=== PATIENT | female | born 1995 | race Caucasian/White ===

== ENCOUNTER 2018-04-21 08:05 | Emergency (ER) | payer OTHER ==
--- NOTE | 2018-04-21 09:26 | EDM.PDOC ---
ED HPI GENERAL MEDICAL PROBLEM - General Chief Complaint: SILO MAN Problem Stated Complaint: NEWLY PG-BLEEDING Time Seen by Provider: 04/21/18 08:22 Source of Information: Reports: Patient History Limitations: Reports: No Limitations - History of Present Illness INITIAL COMMENTS - FREE TEXT/NARRATIVE: The patient is G1 at 5 weeks gestation with a LNMP of March 18. She presents with cramping and vaginal bleeding. This all started early this morning at 0230. She had sever cramping and moderate bleeding. This has gotten better but she is still having bleeding. She did not pass any clots or tissue. She has no medical problems. She has no fever, chills, cough, chest pain, shortness of breath, or dysuria. Onset: Sudden Duration: Hour(s): (0230 this morning) Location: Reports: Abdomen, Pelvis Quality: Reports: Other (cramping) Severity: Moderate Improves with: Reports: None Worsens with: Reports: None Associated Symptoms: Reports: No Other Symptoms Lower Pelvic Pain Score (Numeric/FACES): 2 - Related Data Allergies Allergy/AdvReac Type Severity Reaction Status Date / Time No Known Allergies Allergy Verified 04/21/18 08:16 Home Meds: Home Meds Vits #93/Iron Fum/FA [ Formula Tablet] 1 tab PO DAILY 04/21/18 [History] Past Medical History Genitourinary History: Reports: UTI, Recurrent - Infectious Disease History Infectious Disease History: Reports: Chicken Pox Social & Family History - Tobacco Use Smoking Status *Q: Never Smoker Second Hand Smoke Exposure: No - Caffeine Use Caffeine Use: Reports: Coffee, Energy Drinks, Soda, Tea - Recreational Drug Use Recreational Drug Use: No ED ROS GENERAL - Review of Systems Review Of Systems: See Below Constitutional: Reports: No Symptoms HEENT: Reports: No Symptoms Respiratory: Reports: No Symptoms Cardiovascular: Reports: No Symptoms Endocrine: Reports: No Symptoms GI/Abdominal: Reports: No Symptoms : Reports: Other (Vaginal bleeding and cramping) Musculoskeletal: Reports: No Symptoms ED EXAM - Physical Exam Exam: See Below Exam Limited By: No Limitations General Appearance: Alert, No Apparent Distress Ears: Normal External Exam Nose: Normal Inspection Head: Atraumatic, Normocephalic Neck: Normal Inspection Respiratory/Chest: No Respiratory Distress, Lungs Clear, Normal Breath Sounds Cardiovascular: Regular Rate, Rhythm, No Edema, No Murmur GI/Abdominal Exam: Soft, Non-Tender, No Organomegaly, No Mass Course - Vital Signs Last Recorded V/S: Last Vital Signs Temp 98.7 F 04/21/18 08:10 Pulse 80 04/21/18 08:10 Resp 18 04/21/18 08:10 BP 135/74 04/21/18 08:10 Pulse Ox 97 04/21/18 08:10 - Orders/Labs/Meds Orders: Active Orders 24 hr Category Date Time Status Pelvic Exam, Set Up [RC] ASDIRECTED Care 04/21/18 08:40 Inactive OB Transvaginal [US] Stat Exams 04/21/18 08:39 Taken ABO/RH TYPE [BBK] Stat Lab 04/21/18 09:00 Results PATIENT RETYPE [BBK] Stat Lab 04/21/18 09:00 Results Labs: Laboratory Tests 04/21/18 04/21/18 04/21/18 Range/Units 09:00 09:00 09:00 WBC 10.34 H (3.98-10.04) K/mm3 RBC 5.75 H (3.98-5.22) M/mm3 Hgb 16.3 H (11.2-15.7) gm/L Hct 47.7 H (34.1-44.9) % MCV 83.0 (79.4-94.8) fl MCH 28.3 (25.6-32.2) pg MCHC 34.2 (32.2-35.5) g/dl RDW Std Deviation 38.8 (36.4-46.3) fL Plt Count 351 (182-369) K/mm3 MPV 9.7 (9.4-12.3) fl Neut % (Auto) 74.6 H (34.0-71.1) % Lymph % (Auto) 18.8 L (19.3-51.7) % [place] % (Auto) 4.6 L (4.7-12.5) % Eos % (Auto) 1.5 (0.7-5.8) Baso % (Auto) 0.2 (0.1-1.2) % Neut # (Auto) 7.72 H (1.56-6.13) K/mm3 Lymph # (Auto) 1.94 (1.18-3.74) K/mm3 [place] # (Auto) 0.48 H (0.24-0.36) K/mm3 Eos # (Auto) 0.15 (0.04-0.36) K/mm3 Baso # (Auto) 0.02 (0.01-0.08) K/mm3 HCG, Quant 2.0 mIU/mL Blood Type B POSITIVE - Re-Assessments/Exams Free Text/Narrative Re-Assessment/Exam: 04/21/18 09:25 I ordered labs, and a transvaginal US. 04/21/18 10:43 Her WBC was low at 10.34. Her Hgb was elevated at 16.3. Her HCG was very low at 2. Her blood type is B positive. Her US shows moderate free fluid adjacent to the right adnexal region 2.6 X 2.5 X 1.7 cm. No intrauterine . No gestational sac. This most likely represents miscarriage. I will have her follow up with Dr Alves this week. This more than likely is a spontaneous miscarriage but early and ectopic are possibilities. Departure - Departure Time of Disposition: 10:50 Disposition: Home, Self-Care 01 Condition: Good Clinical Impression: Spontaneous - Discharge Information *PRESCRIPTION DRUG MONITORING PROGRAM REVIEWED*: No *COPY OF PRESCRIPTION DRUG MONITORING REPORT IN PATIENT CITLALI: No Referrals: Trista Alves MD [Primary Care Provider] - 1 Week Forms: ED Department Discharge Additional Instructions: Follow up with Dr Alves or one of her partners this week. Take motrin for any cramping. Please return if you are bleeding more and soaking more then a pad an hour. - My Orders Last 24 Hours: My Active Orders 04/21/18 08:39 OB Transvaginal [US] Stat 04/21/18 08:40 Pelvic Exam, Set Up [RC] ASDIRECTED 04/21/18 09:00 ABO/RH TYPE [BBK] Stat PATIENT RETYPE [BBK] Stat - Assessment/Plan Last 24 Hours: My Active Orders 04/21/18 08:39 OB Transvaginal [US] Stat 04/21/18 08:40 Pelvic Exam, Set Up [RC] ASDIRECTED 04/21/18 09:00 ABO/RH TYPE [BBK] Stat PATIENT RETYPE [BBK] Stat
--- NOTE | 2018-04-22 15:52 | US ---
First trimester obstetrical ultrasound: Multiple real-time images were obtained transvaginally. Comparison: No previous study. No intrauterine gestational sac is seen. No adnexal abnormalities are seen. Endometrial thickness is 5 mm. Simple-appearing fluid noted within the right adnexa and within the cul-de-sac. Maternal ovaries are within normal limits. Impression: 1. No intrauterine gestational sac. Slightly prominent free fluid which appears simple. Note: If patient has a positive test differential includes that is too early to see, nonvisualized ectopic and miscarriage. Diagnostic code #2 I agree with preliminary report from [facility], finalized at 04/21/18, 11:28 AM Central Time
== END 2018-04-21 10:55 | disposition home or self-care (01) ==
LOC: JD.ED 08:05 → SUPCPDRO 08:05 → JD.ED 10:55
DX: O03.9 Complete or unspecified spontaneous abortion without complication (principal); Z79.899 Other long term (current) drug therapy
CPT/HCPCS: 36415; 76817; 76817-26; 84702; 85025; 86900; 86901; 99283; 99284-25

== ENCOUNTER 2019-10-21 08:22 | Inpatient (IN) | payer BC ==
[~2019-10-21 08:22] MED LIST: Bupivacaine 0.25% 10 ML SDV ONE
[2019-10-21] MEDS ORDERED: Sodium Chloride 0.9% 10 ML Syringe FLUSH PRN (18:59)
[2019-10-21] MEDS ORDERED: Ondansetron 4 MG/2 ML SDV IVPUSH PRN (18:59)
[2019-10-21] MEDS ORDERED: Misoprostol 100 MCG Tab VAG PRN (18:59)
[2019-10-21] MEDS ORDERED: Acetaminophen 325 MG Tab PO PRN (18:59)
[2019-10-21] MEDS ORDERED: Oxytocin/Lactated Ringers 10 UNIT/1,000 ML BAG IV SCH ×2 (19:00)
--- NOTE | 2019-10-21 19:04 | PCM.LDHP ---
L&D History of Present Illness - General Date of Service: 10/21/19 Admit Problem/Dx: Patient Status Order with Admit Dx/Problem 10/21/19 19:00 Patient Status [ADT] Routine Admission Diagnosis/Problem Admission Diagnosis/Problem Gestational diabetes mellitus Source of Information: Patient History Limitations: Reports: No Limitations - History of Present Illness Introduction:: Patient is a 24 y/o at 39 1/7 wks who presents for IOL for GODMA2. Doing well. No concerns. - Related Data Allergies/Adverse Reactions: Allergies Allergy/AdvReac Type Severity Reaction Status Date / Time No Known Allergies Allergy Verified 04/21/18 08:16 Home Medications: Home Meds Vits #93/Iron Fum/FA [ Formula Tablet] 1 tab PO DAILY 04/21/18 [History] Insulin Detemir [Levemir Flextouch] 17 units BEDTIME 10/21/19 [History] Past Medical History RECORDS ADMINISTRATOR History: Reports: Polycystic Ovaries, : 1 Para: 0 LMP (Approximate): - Infectious Disease History Infectious Disease History: Reports: Chicken Pox - Past Surgical History HEENT Surgical History: Reports: Myringotomy w Tube(s), Tonsillectomy Social & Family History - Tobacco Use Smoking Status *Q: Never Smoker - Caffeine Use Caffeine Use: Reports: Coffee, Energy Drinks, Soda, Tea - Alcohol Use Alcohol Use History: No - Recreational Drug Use Recreational Drug Use: No H&P Review of Systems - Review of Systems: Review Of Systems: See Below General: Reports: No Symptoms Pulmonary: Reports: No Symptoms Cardiovascular: Reports: No Symptoms Gastrointestinal: Reports: No Symptoms Genitourinary: Reports: No Symptoms Musculoskeletal: Reports: No Symptoms Psychiatric: Reports: No Symptoms Neurological: Reports: No Symptoms L&D Exam - Exam Exam: See Below - OB Specific Contraction Intensity: Irritability Movement: Active Heart Tones: Present Heart Tones per Min: 145 Heart Rate (FHR) Variability: Moderate (6-25 bmp) Presentation: Vertex - Rivers Score Rivers Score Cervix Position: Midposition Rivers Score Consistency: Soft Rivers Score Effacement: 51-70% Rivers Score Dilation: 1-2 cm Rivers Score 's Station: -2 Rivers Score Total: 7 - Exam General: Alert, Oriented, Cooperative Lungs: Clear to Auscultation, Normal Respiratory Effort Cardiovascular: Regular Rate, Regular Rhythm GI/Abdominal Exam: Soft, Non-Tender Genitourinary: Normal external exam Extremities: Normal Inspection Skin: Warm, Dry, Intact - Patient Data Result Diagrams: 10/21/19 19:19 - Problem List (1) 39 weeks gestation of SNOMED Code(s): 00094276 ICD Code: Z3A.39 - 39 WEEKS GESTATION OF Status: Acute Current Visit: Yes (2) Rubella non-immune status, antepartum SNOMED Code(s): 319550870 ICD Code: O99.89 - OTH DISEASES AND CONDITIONS COMPL PREG/CHLDBRTH; Z28.3 - UNDERIMMUNIZATION STATUS Status: Acute Current Visit: Yes (3) Gestational diabetes SNOMED Code(s): 60150992 ICD Code: O24.419 - GESTATIONAL DIABETES MELLITUS IN , UNSP CONTROL Status: Acute Current Visit: Yes Qualifiers: Gestational diabetes mellitus control: insulin-controlled Trimester: third trimester Qualified Code(s): O24.414 - Gestational diabetes mellitus in , insulin controlled Problem List Initiated/Reviewed/Updated: Yes Orders Last 24hrs: Active Orders 24 hr Category Date Time Status Patient Status [ADT] Routine ADT 10/21/19 19:00 Ordered Blood Glucose Check, Bedside [RC] Q4H Care 10/21/19 19:03 Ordered Communication Order [RC] ASDIRECTED Care 10/21/19 19:00 Ordered Communication Order [RC] ASDIRECTED Care 10/21/19 19:00 Ordered Communication Order [RC] ASDIRECTED Care 10/21/19 19:00 Ordered Communication Order [RC] ASDIRECTED Care 10/21/19 19:00 Ordered Heart Tones [RC] ASDIRECTED Care 10/21/19 19:00 Ordered Monitoring [RC] INTERMITTENT Care 10/21/19 19:00 Ordered Non Stress Test [RC] PER UNIT ROUTINE Care 10/21/19 19:00 Ordered Notify Provider [RC] ASDIRECTED Care 10/21/19 19:00 Ordered Notify Provider [RC] PRN Care 10/21/19 19:00 Ordered Peripheral IV Care [RC] . DIRECTED Care 10/21/19 19:00 Ordered Up ad Melissa [RC] ASDIRECTED Care 10/21/19 19:00 Ordered Vaginal Exam [RC] ASDIRECTED Care 10/21/19 19:00 Ordered Vital Signs [RC] ASDIRECTED Care 10/21/19 19:00 Ordered Regular Diet [DIET] Diet 10/21/19 Dinner Ordered CBC W/O DIFF,HEMOGRAM [HEME] Routine Lab 10/21/19 18:59 Ordered RAPID PLASMA REAGIN,RPR [CHEM] Routine Lab 10/21/19 19:00 Ordered TYPE AND SCREEN [BBK] Routine Lab 10/21/19 18:59 Ordered Acetaminophen [Tylenol] Med 10/21/19 18:59 Ordered 650 mg PO Q4H PRN Lactated Ringers [Ringers, Lactated] 1,000 ml Med 10/21/19 19:00 Ordered IV ASDIRECTED Ondansetron [Zofran] Med 10/21/19 18:59 Ordered 4 mg IVPUSH Q4H PRN Oxytocin/Lactated Ringers [Pitocin in LR 10 Units/1,000 Med 10/21/19 19:00 Ordered ML] 10 unit in 1,000 ml IV .CONTINUOUS Oxytocin/Lactated Ringers [Pitocin in LR 10 Units/1,000 Med 10/21/19 19:00 Ordered ML] 10 unit in 1,000 ml IV TITRATE Sodium Chloride 0.9% [Saline Flush] Med 10/21/19 18:59 Ordered 10 ml FLUSH ASDIRECTED PRN miSOPROStoL [Cytotec] Med 10/21/19 18:59 Ordered 25 mcg VAG Q4H PRN Electronic Heart Tones Ext w TOCO [WOMSER] Oth 10/21/19 19:00 Ordered Routine Electronic Heart Tones Internal [WOMSER] Per Unit Oth 10/21/19 19:00 Ordered Routine Medication Administration Instruction [OM.PC] Oth 10/21/19 19:15 Ordered ASDIRECTED Peripheral IV Insertion Adult [OM.PC] Routine Oth 10/21/19 19:00 Ordered Resuscitation Status Routine Resus Stat 10/21/19 18:59 Ordered Medication Orders Acetaminophen (Tylenol) 650 mg PO Q4H PRN PRN Reason: Pain (Mild 1-3) and fever Lactated Ringer's (Ringers, Lactated) 1,000 mls @ 40 mls/hr IV ASDIRECTED TRUDY Oxytocin/Lactated Ringer's (Pitocin In Lr 10 Units/1,000 Ml) 10 unit in 1,000 mls @ 12 mls/hr IV TITRATE TRUDY; Protocol Oxytocin/Lactated Ringer's (Pitocin In Lr 10 Units/1,000 Ml) 10 unit in 1,000 mls @ 500 mls/hr IV .CONTINUOUS TRUDY Misoprostol (Cytotec) 25 mcg VAG Q4H PRN PRN Reason: cervical ripening Ondansetron HCl (Zofran) 4 mg IVPUSH Q4H PRN PRN Reason: Nausea/Vomiting Sodium Chloride (Saline Flush) 10 ml FLUSH ASDIRECTED PRN PRN Reason: Keep Vein Open Assessment/Plan Comment:: * Labs * GBS negative * Blood sugars q4 for GODMA2 * Cytotec for IOL. Pit/AROM when able * Pain management per patient preference * Anticipate
[2019-10-21] MEDS ORDERED: Misoprostol 25 MCG (1/4 of 100 MCG) Tab ONE (20:00)
[2019-10-22] MEDS: Lactated Ringers 1,000 ML IV SCH ×4 (00:28→04:00)
[2019-10-22] MEDS ORDERED: diphenhydrAMINE 50 MG/ML SDV IVPUSH PRN (01:25)
[2019-10-22] MEDS ORDERED: fentaNYL 100 MCG/2 ML SDV EPIDUR PRN (01:25)
[2019-10-22] MEDS ORDERED: Bupivacaine/fentaNYL/NS 100 ML Bag EPIDUR PRN (01:25)
[2019-10-22] MEDS ORDERED: ePHEDrine 50 MG/ML SDV IVPUSH PRN (01:25)
--- NOTE | 2019-10-22 01:51 | PCM.PREANE ---
Preanesthetic Assessment - Procedure Proposed Procedure: anthony - Anesthesia/Transfusion/Family Hx Anesthesia History: Prior Anesthesia Without Reaction Family History of Anesthesia Reaction: No Transfusion History: No Prior Transfusion(s) - Review of Systems General: No Symptoms Pulmonary: No Symptoms Cardiovascular: No Symptoms Gastrointestinal: Abdominal Pain (constractions) Neurological: No Symptoms Other: Reports: Diabetes (gestational) - Physical Assessment Vital Signs: Last Vital Signs Temp 98.0 F 10/21/19 19:46 Pulse 92 10/21/19 19:46 Resp 18 10/21/19 19:46 BP 117/77 10/21/19 19:46 Pulse Ox 97 10/21/19 19:46 Height: 5 ft 2 in Weight: 89.358 kg ASA Class: 2 Mental Status: Alert & Oriented x3 Airway Class: Mallampati = 1 Dentition: Reports: Normal Dentition Thyro-Mental Finger Breadths: 3 Mouth Opening Finger Breadths: 3 ROM/Head Extension: Full Lungs: Clear to Auscultation, Normal Respiratory Effort Cardiovascular: Regular Rate, Regular Rhythm, No Murmurs - Lab Values: Laboratory Last Values WBC 14.27 K/mm3 (3.98-10.04) H 10/21/19 19:19 RBC 4.54 M/mm3 (3.98-5.22) 10/21/19 19:19 Hgb 13.0 gm/dl (11.2-15.7) D 10/21/19 19:19 Hct 38.9 % (34.1-44.9) 10/21/19 19:19 MCV 85.7 fl (79.4-94.8) 10/21/19 19:19 MCH 28.6 pg (25.6-32.2) 10/21/19 19:19 MCHC 33.4 g/dl (32.2-35.5) 10/21/19 19:19 RDW Std Deviation 42.7 fL (36.4-46.3) 10/21/19 19:19 Plt Count 306 K/mm3 (182-369) 10/21/19 19:19 MPV 9.6 fl (9.4-12.3) 10/21/19 19:19 POC Glucose 96 mg/dL (70-105) 10/22/19 00:19 RPR Non-reactive (NONREACTIVE) 10/21/19 19:19 Blood Type B POSITIVE 10/21/19 19:19 Gel Antibody Screen Negative 10/21/19 19:19 - Allergies Allergies/Adverse Reactions: Allergies Allergy/AdvReac Type Severity Reaction Status Date / Time No Known Allergies Allergy Verified 04/21/18 08:16 - Blood Blood Available: No - Acknowledgements Anesthesia Type Planned: Epidural Pt an Appropriate Candidate for the Planned Anesthesia: Yes Alternatives and Risks of Anesthesia Discussed w Pt/Guardian: Yes Pt/Guardian Understands and Agrees with Anesthesia Plan: Yes PreAnesthesia Questionnaire Cardiovascular History: Reports: None Respiratory History: Reports: None Gastrointestinal History: Reports: GERD Genitourinary History: Reports: UTI, Recurrent 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: , Spontaneous : 2 (39 weeks 1) Para: 0 - Infectious Disease History Infectious Disease History: Reports: Chicken Pox - Past Surgical History HEENT Surgical History: Reports: Tonsillectomy - SUBSTANCE USE Smoking Status *Q: Former Smoker (7 years ago) Tobacco Use Within Last Twelve Months: No Second Hand Smoke Exposure: No Days Per Week of Alcohol Use: 0 Recreational Drug Use History: No - HOME MEDS Home Medications: Home Meds Vits #93/Iron Fum/FA [ Formula Tablet] 1 tab PO DAILY 04/21/18 [History] Insulin Detemir [Levemir Flextouch] 17 units BEDTIME 10/21/19 [History] - CURRENT (IN HOUSE) MEDS Current Meds: Current Medications Acetaminophen (Tylenol) 650 mg PO Q4H PRN PRN Reason: Pain (Mild 1-3) and fever Diphenhydramine HCl (Benadryl) 25 mg IVPUSH Q6H PRN PRN Reason: pruritis Ephedrine Sulfate (Ephedrine Sulfate) 5 mg IVPUSH ASDIRECTED PRN PRN Reason: Hypotension Fentanyl (Sublimaze) 100 mcg EPIDUR Q3H PRN PRN Reason: Pain Last Admin: 10/22/19 01:35 Dose: 100 mcg Fentanyl/Bupivacaine HCl (Fentanyl/Bupivacaine/Ns 2 Mcg-0.125% 100 Ml) 100 ml EPIDUR ASDIRECTED PRN PRN Reason: Pain Last Admin: 10/22/19 01:35 Dose: 100 ml Lactated Ringer's (Ringers, Lactated) 1,000 mls @ 40 mls/hr IV ASDIRECTED TRUDY Last Admin: 10/22/19 01:35 Dose: 40 mls/hr Oxytocin/Lactated Ringer's (Pitocin In Lr 10 Units/1,000 Ml) 10 unit in 1,000 mls @ 12 mls/hr IV TITRATE TRUDY; Protocol Last Titration: 10/22/19 01:17 Dose: 4 munits/min, 24 mls/hr Oxytocin/Lactated Ringer's (Pitocin In Lr 10 Units/1,000 Ml) 10 unit in 1,000 mls @ 500 mls/hr IV .CONTINUOUS TRUDY Misoprostol (Cytotec) 25 mcg VAG Q4H PRN PRN Reason: cervical ripening Ondansetron HCl (Zofran) 4 mg IVPUSH Q4H PRN PRN Reason: Nausea/Vomiting Sodium Chloride (Saline Flush) 10 ml FLUSH ASDIRECTED PRN PRN Reason: Keep Vein Open Discontinued Medications Misoprostol (Cytotec) Confirm Administered Dose 25 mcg .ROUTE .BodBot-MED ONE Stop: 10/21/19 20:01 Last Admin: 10/21/19 20:02 Dose: 25 mcg
--- NOTE | 2019-10-22 05:36 | PCM.SN ---
- Free Text/Narrative Note: 0520 Called by nursing at 0020 that patient 3-4 cm and 70%. Defer 2nd cytotec and instead will switch to pitocin. Called next by nursing at 0251 that patient was on 4 of pitocin, just received epidural and now with intermittent late decelerations. Pitocin just discontinued Advised to continue to hold pitocin and allow recovery. Give fluid bolus. If do not resolve to notify me again. Called at 0503 patient tracing intermittently improved, but jut now with run of late decelerations. Pitocin had never been restarted as patient ran frequently (when able to be monitored). Presented to unit, exam at 0520 show patient to be 4, 60%, 2-. Good accelerations with check. AROM performed with release of clear fluid. IUPC placed. Afterwards baby monitored and with FHR around 150, moderate variability. Will continue to monitor closely. Patient and aware if concerns with tracing always possibility of section. Trista Alves MD
[2019-10-22] MEDS ORDERED: ceFAZolin 2 GM in Premix Bag 1 BAG IV ONE (07:31)
[2019-10-22] MEDS ORDERED: Metoclopramide 10 MG/2 ML SDV IVPUSH ONE (07:31)
[2019-10-22] MEDS ORDERED: Azithromycin 500 MG in Sodium Chloride 0.9% 250 ML IV ONE (07:31)
[2019-10-22] MEDS ORDERED: Citric Acid/Sodium Citrate Solution 30 ML Cup PO ONE (07:31)
[2019-10-22] MEDS ORDERED: Metoclopramide 10 MG/2 ML SDV ONE (07:36)
[2019-10-22] MEDS ORDERED: Citric Acid/Sodium Citrate Solution 30 ML Cup ONE (07:37)
--- NOTE | 2019-10-22 07:42 | PCM.SN ---
- Free Text/Narrative Note: 0740 Patient with continued runs of late decelerations. Patient 5 cm and 90% effaced. Reviewed recommendation for PLTCS. She agrees. While prepping patient for heart rate drops to 60's. Exam done and shows patient about 9 cm dilated and +1. Will move to OR and reassess FHR. If recovering and complete will attempt . If further concerns may need to proceed with PLTCS. She agrees. See delivery note. Trista Alves MD
[2019-10-22] MEDS ORDERED: ceFAZolin 1 GM Vial ONE (07:46)
[2019-10-22] MEDS ORDERED: Ketorolac 30 MG/ML SDV ONE (07:46)
[2019-10-22] MEDS ORDERED: Lactated Ringers 1,000 ML ONE (07:46)
[2019-10-22] MEDS ORDERED: Ondansetron 4 MG/2 ML SDV ONE (07:46)
[2019-10-22] MEDS ORDERED: Oxytocin 10 Units/1 ML SDV ONE (07:46)
[2019-10-22] MEDS ORDERED: Morphine PF 10 MG/10 ML SDV ONE (07:47)
[2019-10-22] MEDS ORDERED: Lidocaine 2% with EPINEPHrine 1:200,000 20 ML SDV ONE (07:48)
[2019-10-22] MEDS ORDERED: Sodium Bicarbonate 8.4% 50 MEQ/50 ML SDV ONE (07:48)
[2019-10-22] MEDS ORDERED: fentaNYL 100 MCG/2 ML SDV ONE (07:49)
[2019-10-22] MEDS ORDERED: Benzocaine/Menthol 20%-0.5% Spray 56 GM Canister TOP PRN ×2 (08:45→09:01)
[2019-10-22] MEDS ORDERED: Docusate Sodium 100 MG Cap PO PRN ×2 (08:45→09:01)
[2019-10-22] MEDS ORDERED: Witch Hazel Medicated Pads 40/Jar TOP PRN ×2 (08:45→09:01)
[2019-10-22] MEDS ORDERED: Acetaminophen 325 MG Tab PO PRN (08:45)
--- NOTE | 2019-10-22 08:45 | PCM.DEL ---
L & D Note - General Info Date of Service: 10/22/19 - Delivery Note Labor: Augmented by Oxytocin Cervical Ripening Method: Misoprostil Delivery Outcome: Livebirth Infant Delivery Method: Spontaneous Vaginal Delivery-Single Delivery Mode: Spontaneous Presentation: Right Occiput Anterior (JUJU) Nuchal Cord: None Anesthesia Type: Epidural Amniotic Fluid Description: Clear Episiotomy Type: None Laceration: 2nd Degree, Labial (right side) Suture type: Vicryl Suture size: 2-0 Placenta: Intact, Spontaneous Cord: 3 Vessels Estimated Blood Loss: 300 Resuscitation Needed: Yes : Bulb Syringe, Stimulated, Warmed, Warmer Used Delivery Comments (Free Text/Narrative):: Patient found to be complete in OR with +2 station. heart rate in 150's in OR. Patient allowed to begin pushing. With maternal pushing effort head delivered from an JUJU presentation. No nuchal cord present. With gentle downward traction shoulders and body delivered. placed on maternal abdomen. Cord clamped and cut. Cord blood obtained. Placenta allowed time to separate and expelled intact. Inspection of the perineum showed a 2nd degree perineal laceration which was repaired with an 0 vicryl and a right labial tear repaired with a 4-0 monocryl. - General Info Date of Service: 10/22/19 - Patient Data Vitals - Most Recent: Last Vital Signs Temp 36.7 C 10/21/19 19:46 Pulse 92 10/21/19 19:46 Resp 18 10/21/19 19:46 BP 117/77 10/21/19 19:46 Pulse Ox 97 10/21/19 19:46 Weight - Most Recent: 89.358 kg Lab Results Last 24 Hours: Laboratory Results - last 24 hr 10/21/19 10/21/19 10/21/19 Range/Units 19:19 19:19 19:19 WBC 14.27 H (3.98-10.04) K/mm3 RBC 4.54 (3.98-5.22) M/mm3 Hgb 13.0 D (11.2-15.7) gm/dl Hct 38.9 (34.1-44.9) % MCV 85.7 (79.4-94.8) fl MCH 28.6 (25.6-32.2) pg MCHC 33.4 (32.2-35.5) g/dl RDW Std Deviation 42.7 (36.4-46.3) fL Plt Count 306 (182-369) K/mm3 MPV 9.6 (9.4-12.3) fl POC Glucose (70-105) mg/dL RPR Non-reactive (NONREACTIVE) Blood Type B POSITIVE Gel Antibody Screen Negative 10/21/19 10/22/19 10/22/19 Range/Units 20:12 00:19 04:04 WBC (3.98-10.04) K/mm3 RBC (3.98-5.22) M/mm3 Hgb (11.2-15.7) gm/dl Hct (34.1-44.9) % MCV (79.4-94.8) fl MCH (25.6-32.2) pg MCHC (32.2-35.5) g/dl RDW Std Deviation (36.4-46.3) fL Plt Count (182-369) K/mm3 MPV (9.4-12.3) fl POC Glucose 89 96 82 (70-105) mg/dL RPR (NONREACTIVE) Blood Type Gel Antibody Screen 10/22/19 Range/Units 07:45 WBC (3.98-10.04) K/mm3 RBC (3.98-5.22) M/mm3 Hgb (11.2-15.7) gm/dl Hct (34.1-44.9) % MCV (79.4-94.8) fl MCH (25.6-32.2) pg MCHC (32.2-35.5) g/dl RDW Std Deviation (36.4-46.3) fL Plt Count (182-369) K/mm3 MPV (9.4-12.3) fl POC Glucose 80 (70-105) mg/dL RPR (NONREACTIVE) Blood Type Gel Antibody Screen Med Orders - Current: Current Medications Acetaminophen (Tylenol) 650 mg PO Q4H PRN PRN Reason: Pain (Mild 1-3) and fever Diphenhydramine HCl (Benadryl) 25 mg IVPUSH Q6H PRN PRN Reason: pruritis Ephedrine Sulfate (Ephedrine Sulfate) 5 mg IVPUSH ASDIRECTED PRN PRN Reason: Hypotension Fentanyl (Sublimaze) 100 mcg EPIDUR Q3H PRN PRN Reason: Pain Last Admin: 10/22/19 01:35 Dose: 100 mcg Fentanyl/Bupivacaine HCl (Fentanyl/Bupivacaine/Ns 2 Mcg-0.125% 100 Ml) 100 ml EPIDUR ASDIRECTED PRN PRN Reason: Pain Last Admin: 10/22/19 01:35 Dose: 100 ml Lactated Ringer's (Ringers, Lactated) 1,000 mls @ 40 mls/hr IV ASDIRECTED TRUDY Last Admin: 10/22/19 04:00 Dose: 40 mls/hr Oxytocin/Lactated Ringer's (Pitocin In Lr 10 Units/1,000 Ml) 10 unit in 1,000 mls @ 12 mls/hr IV TITRATE TRUDY; Protocol Last Titration: 10/22/19 02:26 Dose: 0 munits/min, 0 mls/hr Oxytocin/Lactated Ringer's (Pitocin In Lr 10 Units/1,000 Ml) 10 unit in 1,000 mls @ 500 mls/hr IV .CONTINUOUS TRUDY Misoprostol (Cytotec) 25 mcg VAG Q4H PRN PRN Reason: cervical ripening Ondansetron HCl (Zofran) 4 mg IVPUSH Q4H PRN PRN Reason: Nausea/Vomiting Sodium Chloride (Saline Flush) 10 ml FLUSH ASDIRECTED PRN PRN Reason: Keep Vein Open Discontinued Medications Cefazolin Sodium (Ancef) Confirm Administered Dose 2 gm .ROUTE .STK-MED ONE Stop: 10/22/19 07:47 Citric Acid/Sodium Citrate (Bicitra Solution) 30 ml PO ONETIME ONE Stop: 10/22/19 07:32 Citric Acid/Sodium Citrate (Bicitra Solution) Confirm Administered Dose 30 ml .ROUTE .STK-MED ONE Stop: 10/22/19 07:38 Fentanyl (Sublimaze) Confirm Administered Dose 100 mcg .ROUTE .STK-MED ONE Stop: 10/22/19 07:50 Azithromycin 500 mg/ Sodium (Chloride) 250 mls @ 250 mls/hr IV ONETIME ONE Stop: 10/22/19 08:30 Cefazolin Sodium/Dextrose 2 gm (/ Premix) 50 mls @ 100 mls/hr IV ONETIME ONE Stop: 10/22/19 08:00 Lactated Ringer's (Ringers, Lactated) Confirm Administered Dose 2,000 mls @ as directed .ROUTE .STK-MED ONE Stop: 10/22/19 07:47 Ketorolac Tromethamine (Toradol) Confirm Administered Dose 30 mg .ROUTE .STK- MED ONE Stop: 10/22/19 07:47 Lidocaine/Epinephrine (Xylocaine-Mpf 2%-Epi 1:200,000) Confirm Administered Dose 20 ml .ROUTE .STK-MED ONE Stop: 10/22/19 07:49 Metoclopramide HCl (Reglan) 10 mg IVPUSH ONETIME ONE Stop: 10/22/19 07:32 Metoclopramide HCl (Reglan) Confirm Administered Dose 10 mg .ROUTE .STK-MED ONE Stop: 10/22/19 07:37 Misoprostol (Cytotec) Confirm Administered Dose 25 mcg .ROUTE .STK-MED ONE Stop: 10/21/19 20:01 Last Admin: 10/21/19 20:02 Dose: 25 mcg Morphine Sulfate (Duramorph Pf) Confirm Administered Dose 10 mg .ROUTE .STK-MED ONE Stop: 10/22/19 07:48 Ondansetron HCl (Zofran) Confirm Administered Dose 4 mg .ROUTE .STK-MED ONE Stop: 10/22/19 07:47 Oxytocin (Pitocin) Confirm Administered Dose 20 unit .ROUTE .STK-MED ONE Stop: 10/22/19 07:47 Sodium Bicarbonate (Sodium Bicarbonate 8.4%) Confirm Administered Dose 50 meq .ROUTE .STK-MED ONE Stop: 10/22/19 07:49 - Problem List & Annotations (1) 39 weeks gestation of SNOMED Code(s): 41864677 Code(s): Z3A.39 - 39 WEEKS GESTATION OF Status: Acute Current Visit: Yes (2) Rubella non-immune status, antepartum SNOMED Code(s): 073579250 Code(s): O99.89 - OTH DISEASES AND CONDITIONS COMPL PREG/CHLDBRTH; Z28.3 - UNDERIMMUNIZATION STATUS Status: Acute Current Visit: Yes (3) Gestational diabetes SNOMED Code(s): 23477288 Code(s): O24.419 - GESTATIONAL DIABETES MELLITUS IN , UNSP CONTROL Status: Acute Current Visit: Yes Qualifiers: Gestational diabetes mellitus control: insulin-controlled Trimester: third trimester Qualified Code(s): O24.414 - Gestational diabetes mellitus in , insulin controlled (4) Vaginal delivery SNOMED Code(s): 123424355 Code(s): O80 - ENCOUNTER FOR FULL-TERM UNCOMPLICATED DELIVERY Status: Acute Current Visit: Yes - Problem List Review Problem List Initiated/Reviewed/Updated: Yes - My Orders Last 24 Hours: My Active Orders 10/21/19 18:59 Acetaminophen [Tylenol] 650 mg PO Q4H PRN Ondansetron [Zofran] 4 mg IVPUSH Q4H PRN Sodium Chloride 0.9% [Saline Flush] 10 ml FLUSH ASDIRECTED PRN miSOPROStoL [Cytotec] 25 mcg VAG Q4H PRN Resuscitation Status Routine 10/21/19 19:00 Patient Status [ADT] Routine Communication Order [RC] ASDIRECTED Communication Order [RC] ASDIRECTED Communication Order [RC] ASDIRECTED Communication Order [RC] ASDIRECTED Heart Tones [RC] ASDIRECTED Monitoring [RC] INTERMITTENT Non Stress Test [RC] PER UNIT ROUTINE Notify Provider [RC] ASDIRECTED Notify Provider [RC] PRN Up ad Melissa [RC] ASDIRECTED Vaginal Exam [RC] ASDIRECTED Vital Signs [RC] ASDIRECTED Lactated Ringers [Ringers, Lactated] 1,000 ml IV ASDIRECTED Oxytocin/Lactated Ringers [Pitocin in LR 10 Units/1,000 ML] 10 unit in 1,000 ml IV .CONTINUOUS Oxytocin/Lactated Ringers [Pitocin in LR 10 Units/1,000 ML] 10 unit in 1,000 ml IV TITRATE Electronic Heart Tones Ext w TOCO [WOMSER] Routine Electronic Heart Tones Internal [WOMSER] Per Unit Routine Peripheral IV Insertion Adult [OM.PC] Routine 10/21/19 19:03 Blood Glucose Check, Bedside [RC] Q4HR 10/21/19 19:15 Medication Administration Instruction [OM.PC] ASDIRECTED 10/21/19 Dinner Regular Diet [DIET] 10/22/19 07:31 Procedure Site Prep Instruct [RC] ASDIRECTED Verify Patient Consent Obtain [RC] PER UNIT ROUTINE Schedule Procedure [COMM] Per Unit Routine - Assessment Assessment:: PPD#0 - Plan Plan:: * Routine cares * Breast feeding * Will assess fasting blood sugar in AM * MMR prior to discharge * Discharge home in 1-2 days
[2019-10-22] MEDS ORDERED: Ibuprofen 600 MG Tab PO PRN (13:00)
[2019-10-22] MEDS: Ibuprofen 600 MG Tab PO PRN ×2 (13:56→19:49)
[2019-10-22] MEDS: Acetaminophen 325 MG Tab PO PRN (16:55)
[2019-10-23] MEDS: Acetaminophen 325 MG Tab PO PRN ×2 (00:43→08:40)
[2019-10-23] MEDS: Ibuprofen 600 MG Tab PO PRN ×2 (04:08→15:53)
--- NOTE | 2019-10-23 08:05 | PCM.PNPP ---
- General Info Date of Service: 10/23/19 Functional Status: Reports: Pain Controlled, Tolerating Diet, Ambulating, Urinating - Review of Systems General: Reports: No Symptoms Pulmonary: Reports: No Symptoms Cardiovascular: Reports: No Symptoms Gastrointestinal: Reports: No Symptoms Genitourinary: Reports: No Symptoms Musculoskeletal: Reports: No Symptoms - Patient Data Vital Signs - Most Recent: Last Vital Signs Temp 36.5 C 10/23/19 04:10 Pulse 78 10/23/19 04:10 Resp 16 10/23/19 04:10 BP 116/69 10/23/19 04:10 Pulse Ox 97 10/23/19 04:10 Weight - Most Recent: 89.358 kg I&O - Last 24 Hours: Intake & Output 10/22/19 10/23/19 10/23/19 22:59 06:59 14:59 Intake Total 600 Balance 600 Lab Results - Last 24 Hours: Laboratory Results - last 24 hr 10/23/19 Range/Units 05:38 POC Glucose 72 (70-105) mg/dL Med Orders - Current: Current Medications Acetaminophen (Tylenol) 650 mg PO Q4H PRN PRN Reason: mild pain or fever Last Admin: 10/23/19 00:43 Dose: 650 mg Benzocaine/Menthol (Dermoplast Pain Relief [place]) 0 gm TOP ASDIRECTED PRN PRN Reason: Perineal Comfort Measure Last Admin: 10/22/19 11:43 Dose: 1 spray Docusate Sodium (Colace) 100 mg PO BID PRN PRN Reason: Constipation Ibuprofen (Motrin) 600 mg PO Q6H PRN PRN Reason: Mild pain or fever Last Admin: 10/23/19 04:08 Dose: 600 mg [place] (Tucks) 1 pad TOP ASDIRECTED PRN PRN Reason: Perineal Comfort Measure Last Admin: 10/22/19 11:43 Dose: 1 pad Discontinued Medications Acetaminophen (Tylenol) 650 mg PO Q4H PRN PRN Reason: Pain (Mild 1-3) and fever Acetaminophen (Tylenol) 650 mg PO Q4H PRN PRN Reason: mild pain or fever Benzocaine/Menthol (Dermoplast Pain Relief [place]) 0 gm TOP ASDIRECTED PRN PRN Reason: Perineal Comfort Measure Cefazolin Sodium (Ancef) Confirm Administered Dose 2 gm .ROUTE .STK-MED ONE Stop: 10/22/19 07:47 Citric Acid/Sodium Citrate (Bicitra Solution) 30 ml PO ONETIME ONE Stop: 10/22/19 07:32 Citric Acid/Sodium Citrate (Bicitra Solution) Confirm Administered Dose 30 ml .ROUTE .STK-MED ONE Stop: 10/22/19 07:38 Diphenhydramine HCl (Benadryl) 25 mg IVPUSH Q6H PRN PRN Reason: pruritis Docusate Sodium (Colace) 100 mg PO BID PRN PRN Reason: Constipation Ephedrine Sulfate (Ephedrine Sulfate) 5 mg IVPUSH ASDIRECTED PRN PRN Reason: Hypotension Fentanyl (Sublimaze) 100 mcg EPIDUR Q3H PRN PRN Reason: Pain Last Admin: 10/22/19 01:35 Dose: 100 mcg Fentanyl (Sublimaze) Confirm Administered Dose 100 mcg .ROUTE .STK-MED ONE Stop: 10/22/19 07:50 Fentanyl/Bupivacaine HCl (Fentanyl/Bupivacaine/Ns 2 Mcg-0.125% 100 Ml) 100 ml EPIDUR ASDIRECTED PRN PRN Reason: Pain Last Admin: 10/22/19 01:35 Dose: 100 ml Lactated Ringer's (Ringers, Lactated) 1,000 mls @ 40 mls/hr IV ASDIRECTED TRUDY Last Admin: 10/22/19 04:00 Dose: 40 mls/hr Oxytocin/Lactated Ringer's (Pitocin In Lr 10 Units/1,000 Ml) 10 unit in 1,000 mls @ 12 mls/hr IV TITRATE TRUDY; Protocol Last Titration: 10/22/19 02:26 Dose: 0 munits/min, 0 mls/hr Oxytocin/Lactated Ringer's (Pitocin In Lr 10 Units/1,000 Ml) 10 unit in 1,000 mls @ 500 mls/hr IV .CONTINUOUS TRUDY Azithromycin 500 mg/ Sodium (Chloride) 250 mls @ 250 mls/hr IV ONETIME ONE Stop: 10/22/19 08:30 Cefazolin Sodium/Dextrose 2 gm (/ Premix) 50 mls @ 100 mls/hr IV ONETIME ONE Stop: 10/22/19 08:00 Lactated Ringer's (Ringers, Lactated) Confirm Administered Dose 1,000 mls @ as directed .ROUTE .STK-MED ONE Stop: 10/22/19 07:47 Ibuprofen (Motrin) 600 mg PO Q6H PRN PRN Reason: Mild pain or fever Ketorolac Tromethamine (Toradol) Confirm Administered Dose 30 mg .ROUTE .STK- MED ONE Stop: 10/22/19 07:47 Lidocaine/Epinephrine (Xylocaine-Mpf 2%-Epi 1:200,000) Confirm Administered Dose 20 ml .ROUTE .STK-MED ONE Stop: 10/22/19 07:49 Metoclopramide HCl (Reglan) 10 mg IVPUSH ONETIME ONE Stop: 10/22/19 07:32 Metoclopramide HCl (Reglan) Confirm Administered Dose 10 mg .ROUTE .STK-MED ONE Stop: 10/22/19 07:37 Misoprostol (Cytotec) 25 mcg VAG Q4H PRN PRN Reason: cervical ripening Misoprostol (Cytotec) Confirm Administered Dose 25 mcg .ROUTE .STK-MED ONE Stop: 10/21/19 20:01 Last Admin: 10/21/19 20:02 Dose: 25 mcg Morphine Sulfate (Duramorph Pf) Confirm Administered Dose 10 mg .ROUTE .STK-MED ONE Stop: 10/22/19 07:48 Ondansetron HCl (Zofran) 4 mg IVPUSH Q4H PRN PRN Reason: Nausea/Vomiting Ondansetron HCl (Zofran) Confirm Administered Dose 4 mg .ROUTE .STK-MED ONE Stop: 10/22/19 07:47 Oxytocin (Pitocin) Confirm Administered Dose 20 unit .ROUTE .STK-MED ONE Stop: 10/22/19 07:47 Sodium Bicarbonate (Sodium Bicarbonate 8.4%) Confirm Administered Dose 50 meq .ROUTE .STK-MED ONE Stop: 10/22/19 07:49 Sodium Chloride (Saline Flush) 10 ml FLUSH ASDIRECTED PRN PRN Reason: Keep Vein Open [place] (Tucks) 1 pad TOP ASDIRECTED PRN PRN Reason: Perineal Comfort Measure - Infant Interaction Disposition, : in Room with Family Infant Interaction: Holding Infant Infant Feeding: Attempted ; Nursed Fair/Poor Support Person: - Recovery Exam Fundal Tone: Firm Fundal Level: 1 Fingerbreadths Below Umbilicus Fundal Placement: Midline Lochia Amount: Small Lochia Color: Rubra/Red Episiotomy/Laceration: Approximated Urinary Elimination: Voided - Exam General: Alert, Oriented, Cooperative GI/Abdominal Exam: Soft, Non-Tender Extremities: Normal Inspection - Problem List & Annotations (1) 39 weeks gestation of SNOMED Code(s): 27879514 Code(s): Z3A.39 - 39 WEEKS GESTATION OF Status: Acute Current Visit: Yes (2) Rubella non-immune status, antepartum SNOMED Code(s): 843386576 Code(s): O99.89 - OTH DISEASES AND CONDITIONS COMPL PREG/CHLDBRTH; Z28.3 - UNDERIMMUNIZATION STATUS Status: Acute Current Visit: Yes (3) Gestational diabetes SNOMED Code(s): 66817300 Code(s): O24.419 - GESTATIONAL DIABETES MELLITUS IN , UNSP CONTROL Status: Acute Current Visit: Yes Qualifiers: Gestational diabetes mellitus control: insulin-controlled Trimester: third trimester Qualified Code(s): O24.414 - Gestational diabetes mellitus in , insulin controlled (4) Vaginal delivery SNOMED Code(s): 918519256 Code(s): O80 - ENCOUNTER FOR FULL-TERM UNCOMPLICATED DELIVERY Status: Acute Current Visit: Yes - Problem List Review Problem List Initiated/Reviewed/Updated: Yes - My Orders Last 24 Hours: My Active Orders 10/22/19 07:31 Procedure Site Prep Instruct [RC] ASDIRECTED Verify Patient Consent Obtain [RC] PER UNIT ROUTINE 10/22/19 08:45 Activity as Tolerated [RC] PER UNIT ROUTINE Vital Signs [RC] ASDIRECTED 10/22/19 09:01 Activity as Tolerated [RC] PER UNIT ROUTINE Vital Signs [RC] 1600,2000,0000,0400 Acetaminophen [Tylenol] 650 mg PO Q4H PRN Benzocaine/Menthol [Dermoplast Pain Relief [place]] See Dose Instructions TOP ASDIRECTED PRN Docusate Sodium [Colace] 100 mg PO BID PRN [place] [Tucks] 1 pad TOP ASDIRECTED PRN Assess Lochia [WOMSER] Per Unit Routine Assess Uterine Involution [WOMSER] Per Unit Routine Breast Pump [WOMSER] Per Unit Routine Heat Therapy [OM.PC] PRN Ice Therapy [OM.PC] Per Unit Routine Perineal Care [OM.PC] Per Unit Routine Peripheral IV Discontinue [OM.PC] Routine Sitz Bath [OM.PC] Per Unit Routine 10/22/19 10:00 Ibuprofen [Motrin] 600 mg PO Q6H PRN 10/23/19 05:00 Blood Glucose Check, Bedside [RC] ONETIME Blood Glucose Check, Bedside [RC] ONETIME 10/23/19 09:01 Heat Therapy [OM.PC] PRN - Assessment Assessment:: PPD#1 - Plan Plan:: * Routine cares * Breast feeding * Fasting blood sugar this AM appropriate. No further monitoring need in hospital. Will plan 2hr GTT at 6 wks * MMR prior to discharge * Discharge home tomorrow
--- NOTE | 2019-10-23 08:40 | PCM48HPAN ---
Post Anesthesia Note - EVALUATION WITHIN 48HRS OF ANESTHETIC Vital Signs in Normal Range: Yes Patient Participated in Evaluation: Yes Respiratory Function Stable: Yes Airway Patent: Yes Cardiovascular Function Stable: Yes Hydration Status Stable: Yes Pain Control Satisfactory: Yes Nausea and Vomiting Control Satisfactory: Yes Mental Status Recovered: Yes Vital Signs: Last Vital Signs Temp 36.5 C 10/23/19 04:10 Pulse 78 10/23/19 04:10 Resp 16 10/23/19 04:10 BP 116/69 10/23/19 04:10 Pulse Ox 97 10/23/19 04:10
[2019-10-23] MEDS ORDERED: Measles, Mumps & Rubella Vaccine 0.5 ML SDV SUBCUT ONE (17:00)
[2019-10-24] MEDS: Ibuprofen 600 MG Tab PO PRN (04:11)
--- NOTE | 2019-10-24 07:02 | PCM.DCSUM1 ---
Discharge Summary - Hospital Course Brief History: 24 year old admitted for induction of labor secondary to GDM. Uncomplicated and unremarkable course. Diagnosis: Stroke: No - Discharge Data Discharge Date: 10/24/19 Discharge Disposition: Home, Self-Care 01 Condition: Good - Referral to Home Health Primary Care Physician: Trista Alves MD - Patient Instructions Diet: Usual Diet as Tolerated Activity: No Strenuous Activities Driving: May Drive Today Showering/Bathing: May Shower Wound/Incision Care: Keep Operative Site/Wound Site Clean and Dry Notify Provider of: Fever, Increased Pain, Swelling and Redness, Drainage, Nausea and/or Vomiting - Discharge Plan *PRESCRIPTION DRUG MONITORING PROGRAM REVIEWED*: No Home Medications: Home Meds Vits #93/Iron Fum/FA [ Formula Tablet] 1 tab PO DAILY 04/21/18 [History] Insulin Detemir [Levemir Flextouch] 17 units BEDTIME 10/21/19 [History] Referrals: Trista Alves MD [Primary Care Provider] - (2 weeks) - Discharge Summary/Plan Comment DC Time >30 min.: No - General Info Date of Service: 10/24/19 Functional Status: Reports: Pain Controlled - Review of Systems General: Reports: No Symptoms HEENT: Reports: No Symptoms Pulmonary: Reports: No Symptoms Cardiovascular: Reports: No Symptoms Gastrointestinal: Reports: No Symptoms Genitourinary: Reports: No Symptoms Musculoskeletal: Reports: No Symptoms Skin: Reports: No Symptoms Neurological: Reports: No Symptoms Psychiatric: Reports: No Symptoms - Patient Data Vitals - Most Recent: Last Vital Signs Temp 36.5 C 10/24/19 02:33 Pulse 69 10/24/19 02:33 Resp 18 10/24/19 02:33 BP 104/55 L 10/24/19 02:33 Pulse Ox 97 10/24/19 02:33 Weight - Most Recent: 89.358 kg I&O - Last 24 hours: Intake & Output 10/23/19 10/24/19 10/24/19 22:59 06:59 14:59 Intake Total 240 Balance 240 Med Orders - Current: Current Medications Acetaminophen (Tylenol) 650 mg PO Q4H PRN PRN Reason: mild pain or fever Last Admin: 10/23/19 08:40 Dose: 650 mg Benzocaine/Menthol (Dermoplast Pain Relief [place]) 0 gm TOP ASDIRECTED PRN PRN Reason: Perineal Comfort Measure Last Admin: 10/22/19 11:43 Dose: 1 spray Docusate Sodium (Colace) 100 mg PO BID PRN PRN Reason: Constipation Last Admin: 10/23/19 08:39 Dose: 100 mg Ibuprofen (Motrin) 600 mg PO Q6H PRN PRN Reason: Mild pain or fever Last Admin: 10/24/19 04:11 Dose: 600 mg [place] (Tucks) 1 pad TOP ASDIRECTED PRN PRN Reason: Perineal Comfort Measure Last Admin: 10/22/19 11:43 Dose: 1 pad Discontinued Medications Acetaminophen (Tylenol) 650 mg PO Q4H PRN PRN Reason: Pain (Mild 1-3) and fever Acetaminophen (Tylenol) 650 mg PO Q4H PRN PRN Reason: mild pain or fever Benzocaine/Menthol (Dermoplast Pain Relief [place]) 0 gm TOP ASDIRECTED PRN PRN Reason: Perineal Comfort Measure Bupivacaine HCl (Sensorcaine-Mpf 0.25%) 10 ml .ROUTE .STK-MED ONE Stop: 10/21/19 00:01 Cefazolin Sodium (Ancef) Confirm Administered Dose 2 gm .ROUTE .STK-MED ONE Stop: 10/22/19 07:47 Citric Acid/Sodium Citrate (Bicitra Solution) 30 ml PO ONETIME ONE Stop: 10/22/19 07:32 Citric Acid/Sodium Citrate (Bicitra Solution) Confirm Administered Dose 30 ml .ROUTE .STK-MED ONE Stop: 10/22/19 07:38 Diphenhydramine HCl (Benadryl) 25 mg IVPUSH Q6H PRN PRN Reason: pruritis Docusate Sodium (Colace) 100 mg PO BID PRN PRN Reason: Constipation Ephedrine Sulfate (Ephedrine Sulfate) 5 mg IVPUSH ASDIRECTED PRN PRN Reason: Hypotension Fentanyl (Sublimaze) 100 mcg EPIDUR Q3H PRN PRN Reason: Pain Last Admin: 10/22/19 01:35 Dose: 100 mcg Fentanyl (Sublimaze) Confirm Administered Dose 100 mcg .ROUTE .STK-MED ONE Stop: 10/22/19 07:50 Fentanyl/Bupivacaine HCl (Fentanyl/Bupivacaine/Ns 2 Mcg-0.125% 100 Ml) 100 ml EPIDUR ASDIRECTED PRN PRN Reason: Pain Last Admin: 10/22/19 01:35 Dose: 100 ml Lactated Ringer's (Ringers, Lactated) 1,000 mls @ 40 mls/hr IV ASDIRECTED TRUDY Last Admin: 10/22/19 04:00 Dose: 40 mls/hr Oxytocin/Lactated Ringer's (Pitocin In Lr 10 Units/1,000 Ml) 10 unit in 1,000 mls @ 12 mls/hr IV TITRATE TRUDY; Protocol Last Titration: 10/22/19 02:26 Dose: 0 munits/min, 0 mls/hr Oxytocin/Lactated Ringer's (Pitocin In Lr 10 Units/1,000 Ml) 10 unit in 1,000 mls @ 500 mls/hr IV .CONTINUOUS TRUDY Azithromycin 500 mg/ Sodium (Chloride) 250 mls @ 250 mls/hr IV ONETIME ONE Stop: 10/22/19 08:30 Cefazolin Sodium/Dextrose 2 gm (/ Premix) 50 mls @ 100 mls/hr IV ONETIME ONE Stop: 10/22/19 08:00 Lactated Ringer's (Ringers, Lactated) Confirm Administered Dose 1,000 mls @ as directed .ROUTE .STK-MED ONE Stop: 10/22/19 07:47 Ibuprofen (Motrin) 600 mg PO Q6H PRN PRN Reason: Mild pain or fever Ketorolac Tromethamine (Toradol) Confirm Administered Dose 30 mg .ROUTE .STK- MED ONE Stop: 10/22/19 07:47 Lidocaine/Epinephrine (Xylocaine-Mpf 2%-Epi 1:200,000) Confirm Administered Dose 20 ml .ROUTE .STK-MED ONE Stop: 10/22/19 07:49 Measles/Mumps/Rubella Vaccine Live (M-M-R Ii Vaccine) 0.5 ml SUBCUT .ONCE ONE Stop: 10/23/19 17:01 Last Admin: 10/23/19 17:00 Dose: 0.5 ml Metoclopramide HCl (Reglan) 10 mg IVPUSH ONETIME ONE Stop: 10/22/19 07:32 Metoclopramide HCl (Reglan) Confirm Administered Dose 10 mg .ROUTE .STK-MED ONE Stop: 10/22/19 07:37 Misoprostol (Cytotec) 25 mcg VAG Q4H PRN PRN Reason: cervical ripening Misoprostol (Cytotec) Confirm Administered Dose 25 mcg .ROUTE .STK-MED ONE Stop: 10/21/19 20:01 Last Admin: 10/21/19 20:02 Dose: 25 mcg Morphine Sulfate (Duramorph Pf) Confirm Administered Dose 10 mg .ROUTE .STK-MED ONE Stop: 10/22/19 07:48 Ondansetron HCl (Zofran) 4 mg IVPUSH Q4H PRN PRN Reason: Nausea/Vomiting Ondansetron HCl (Zofran) Confirm Administered Dose 4 mg .ROUTE .STK-MED ONE Stop: 10/22/19 07:47 Oxytocin (Pitocin) Confirm Administered Dose 20 unit .ROUTE .STK-MED ONE Stop: 10/22/19 07:47 Sodium Bicarbonate (Sodium Bicarbonate 8.4%) Confirm Administered Dose 50 meq .ROUTE .STK-MED ONE Stop: 10/22/19 07:49 Sodium Chloride (Saline Flush) 10 ml FLUSH ASDIRECTED PRN PRN Reason: Keep Vein Open [place] (Tucks) 1 pad TOP ASDIRECTED PRN PRN Reason: Perineal Comfort Measure - Exam General: Reports: Alert, Oriented HEENT: Reports: Pupils Equal, Pupils Reactive, EOMI, Mucous Membr. Moist/[place] Neck: Reports: Supple Lungs: Reports: Clear to Auscultation, Normal Respiratory Effort Cardiovascular: Reports: Regular Rate, Regular Rhythm GI/Abdominal Exam: Normal Bowel Sounds, Soft, Non-Tender, No Organomegaly Rectal (Female) Exam: Normal Exam, Normal Rectal Tone Back Exam: Reports: Normal Inspection, Full Range of Motion Extremities: Normal Inspection, Normal Range of Motion, Non-Tender, No Pedal Edema, Normal Capillary Refill Skin: Reports: Warm, Dry, Intact Wound/Incisions: Reports: Healing Well Neurological: Reports: No New Focal Deficit Psy/Mental Status: Reports: Alert, Normal Affect, Normal Mood
== END 2019-10-24 12:40 | disposition home or self-care (01) | DRG 560 ==
LOC: JD.OB 08:22 → OBSVTOIN 10-22 08:22 → JD.OB 10-22 08:23
PROVIDERS: ADMIT Obstetrics & Gynecology; ATTEND Obstetrics & Gynecology
PROC: 10E0XZZ Delivery of Products of Conception, External Approach (ICD-10-PCS; principal; 2019-10-22)
PROC: 3E0P7VZ Introduction of Hormone into Female Reproductive, Via Natural or Artificial Opening (ICD-10-PCS; 2019-10-22)
PROC: 0KQM0ZZ Repair Perineum Muscle, Open Approach (ICD-10-PCS; 2019-10-22)
PROC: 3E0R3BZ Introduction of Anesthetic Agent into Spinal Canal, Percutaneous Approach (ICD-10-PCS; 2019-10-22)
PROC: 10907ZC Drainage of Amniotic Fluid, Therapeutic from Products of Conception, Via Natural or Artificial Opening (ICD-10-PCS; 2019-10-22)
PROC: 10H07YZ Insertion of Other Device into Products of Conception, Via Natural or Artificial Opening (ICD-10-PCS; 2019-10-22)
DX: O24.424 Gestational diabetes mellitus in childbirth, insulin controlled (principal); Z3A.39 39 weeks gestation of pregnancy; Z37.0 Single live birth; Z79.899 Other long term (current) drug therapy; Z90.89 Acquired absence of other organs; O70.1 Second degree perineal laceration during delivery
CPT/HCPCS: 01967; 36415; 51702; 59025; 59409; 82962; 85027; 86592; 86850; 86900; 86901; 90471; 90707; A9270-GY; J0690; J1885; J2270; J2405; J2590; J3010; J3490; J7120

== ENCOUNTER 2021-11-23 06:54 | Inpatient (IN) | payer BC ==
[2021-11-23] MEDS ORDERED: Nalbuphine 10 MG/1 ML Vial IVPUSH PRN (07:09)
[2021-11-23] MEDS ORDERED: Ondansetron 4 MG/2 ML SDV IVPUSH PRN (07:09)
[2021-11-23] MEDS ORDERED: Sodium Chloride 0.9% 10 ML Syringe FLUSH PRN (07:09)
[2021-11-23] MEDS ORDERED: Oxytocin/Lactated Ringers 10 UNIT/1,000 ML BAG IV SCH ×2 (07:15)
[2021-11-23] MEDS: Lactated Ringers 1,000 ML IV SCH ×3 (08:10→16:23)
[2021-11-23] MEDS ORDERED: Sodium Chloride 0.9% 10 ML Syringe FLUSH SCH (09:00)
[2021-11-23] MEDS ORDERED: fentaNYL 100 MCG/2 ML SDV EPIDUR PRN (09:47)
[2021-11-23] MEDS ORDERED: diphenhydrAMINE 50 MG/ML SDV IVPUSH PRN (09:47)
[2021-11-23] MEDS ORDERED: Bupivacaine/fentaNYL/NS 100 ML Bag EPIDUR PRN (09:47)
[2021-11-23] MEDS ORDERED: ePHEDrine 50 MG/ML SDV IVPUSH PRN (09:47)
[2021-11-23] MEDS ORDERED: Acetaminophen 325 MG Tab PO PRN (15:26)
[2021-11-23] MEDS ORDERED: Docusate Sodium 100 MG Cap PO PRN (15:26)
[2021-11-23] MEDS ORDERED: Benzocaine/Menthol 20%-0.5% Spray 78 GM Cannister TOP PRN (15:26)
[2021-11-23] MEDS ORDERED: Witch Hazel Medicated Pads 40/Jar TOP PRN (15:26)
[2021-11-23] MEDS: Ibuprofen 600 MG Tab PO PRN (17:34)
[2021-11-24] MEDS: Ibuprofen 600 MG Tab PO PRN ×2 (00:26→08:22)
== END 2021-11-24 15:00 | disposition home or self-care (01) | DRG 560 ==
LOC: JD.OBCHECK 06:54 → JD.OB 06:58 → OBSVTOIN 14:40 → JD.OB 14:40
PROVIDERS: ADMIT Obstetrics & Gynecology; ATTEND Obstetrics & Gynecology
PROC: 10E0XZZ Delivery of Products of Conception, External Approach (ICD-10-PCS; principal; 2021-11-23)
PROC: 10907ZC Drainage of Amniotic Fluid, Therapeutic from Products of Conception, Via Natural or Artificial Opening (ICD-10-PCS; 2021-11-23)
PROC: 0KQM0ZZ Repair Perineum Muscle, Open Approach (ICD-10-PCS; 2021-11-23)
PROC: 3E0R3BZ Introduction of Anesthetic Agent into Spinal Canal, Percutaneous Approach (ICD-10-PCS; 2021-11-23)
PROC: 00HU33Z Insertion of Infusion Device into Spinal Canal, Percutaneous Approach (ICD-10-PCS; 2021-11-23)
DX: O24.420 Gestational diabetes mellitus in childbirth, diet controlled (principal); Z3A.39 39 weeks gestation of pregnancy; Z37.0 Single live birth; O70.1 Second degree perineal laceration during delivery; Z20.822 Contact with and (suspected) exposure to COVID-19
CPT/HCPCS: 01967; 36415; 51702; 59025; 59409; 85027; 86592; 86850; 86900; 86901; A9270-GY; J2590; J3010; J3490; J7120; U0002